=== PATIENT | male | born 1985 | race Caucasian/White ===

== ENCOUNTER 2016-11-01 19:37 | Emergency (ER) | payer MEDICARE, MEDICAID ==
[~2016-11-01] VITALS: Ht 180.3 cm; Wt 71.0 kg
[~2016-11-01 19:37] MED LIST: CEPH-376 PO
[2016-11-01 19:39] VITALS: BP 111/68
[2016-11-01] MEDS ORDERED: BACITRACIN ZINC OINT 500U/GM, 0.9 GM ONE (20:14)
== END 2016-11-01 20:32 | disposition home or self-care (01) ==
LOC: ED 20:15
DX: M79.672 Pain in left foot (principal); M79.671 Pain in right foot; Z59.0 Homelessness; X58.XXXA Exposure to other specified factors, initial encounter; Y93.89 Activity, other specified; Y99.8 Other external cause status; Y92.488 Other paved roadways as the place of occurrence of the external cause
CPT/HCPCS: 99283

== ENCOUNTER 2017-01-15 01:50 | Emergency (ER) | payer MEDICARE, MEDICAID ==
[~2017-01-15] VITALS: Ht 180.3 cm; Wt 67.9 kg
[2017-01-15 01:53] VITALS: BP 127/84
[2017-01-15] MEDS ORDERED: LIDOCAINE 1%, 20ML ONE (02:24)
[2017-01-15] MEDS ORDERED: LIDOCAINE 1%, 20ML SQ ONE (02:30)
[2017-01-15] MEDS ORDERED: BACITRACIN ZINC OINT 500U/GM, 0.9 GM ONE (03:12)
== END 2017-01-15 03:30 | disposition home or self-care (01) ==
LOC: ED 02:13
DX: S01.312A Laceration without foreign body of left ear, initial encounter (principal); X58.XXXA Exposure to other specified factors, initial encounter; Y93.89 Activity, other specified; Y92.521 Bus station as the place of occurrence of the external cause; Y99.9 Unspecified external cause status
CPT/HCPCS: 12011; 99283

== ENCOUNTER 2017-04-23 15:19 | Emergency (ER) | payer MEDICAID, MEDICARE ==
[~2017-04-23] VITALS: Ht 180.3 cm; Wt 79.0 kg
[2017-04-23 16:18] VITALS: BP 121/58
== END 2017-04-23 18:18 | disposition left against medical advice (07) ==
LOC: ED 17:00
DX: R07.89 Other chest pain (principal)
CPT/HCPCS: 71020; 93005; 99284

== ENCOUNTER 2017-08-22 10:15 | Emergency (ER) | payer MEDICARE ==
[~2017-08-22] VITALS: Ht 180.3 cm; Wt 74.9 kg
[2017-08-22 10:24] VITALS: BP 118/74
== END 2017-08-22 11:35 | disposition home or self-care (01) ==
LOC: ED 11:15
DX: S00.86XA Insect bite (nonvenomous) of other part of head, initial encounter (principal); W57.XXXA Bitten or stung by nonvenomous insect and other nonvenomous arthropods, initial encounter; Y93.84 Activity, sleeping; Y92.89 Other specified places as the place of occurrence of the external cause; Y99.8 Other external cause status; Z59.0 Homelessness; Z98.890 Other specified postprocedural states
CPT/HCPCS: 99283

== ENCOUNTER 2017-09-17 20:21 | Emergency (ER) | payer MEDICARE ==
[~2017-09-17] VITALS: Ht 180.3 cm; Wt 62.0 kg
[2017-09-17] MEDS ORDERED: maalox/diphenh/lido/sucralfate 5 ML PO PRN (20:30)
[2017-09-17] MEDS ORDERED: KETOROLAC 30 MG/1 ML IVPush ONE (20:30)
[2017-09-17 20:52] LABS: MEAN CORPUSCULAR HEMOGLOBIN 30.4 pg (27.5-34.5); MEAN CORPUSCULAR HGB CONC 33.4 g/dL (33.2-36.2); MEAN CORPUSCULAR VOLUME 91.2 fL (81-97); MEAN PLATELET VOLUME 8.4 fL (7.4-10.4); PLATELET COUNT 202 x10^3/uL (130-400); RED BLOOD COUNT 4.93 x10^6/uL (4.38-5.82); RED CELL DISTRIBUTION WIDTH 12.6 % (9.4-14.8)
[2017-09-17] MEDS ORDERED: KETOROLAC 30 MG/1 ML ONE (20:52)
[2017-09-17 21:03] LABS: ALBUMIN 3.7 g/dL (3.4-5.0); ANION GAP 9 mmol/L (5-15); CALCIUM 8.7 mg/dL (8.5-10.1); CHLORIDE 108 mmol/L (98-107); CREATININE 0.87 mg/dL (0.7-1.3)
[2017-09-17 21:24] LABS: BASOPHILS # (AUTO) 0.03 x10^3/uL (0-0.1); BASOPHILS % (AUTO) 0 % (0-1); EOSINOPHILS % (AUTO) 3 % (1-7); LYMPHOCYTES # (AUTO) 2.96 x10^3/uL (1-3.4); LYMPHOCYTES % (AUTO) 44 % (22-44); MD SCAN; MONOCYTES # (AUTO) 0.65 x10^3/uL (0.2-0.8); MONOCYTES % (AUTO) 10 % (2-9); NEUTROPHILS # (AUTO) 2.92 x10^3/uL (1.8-6.8); NEUTROPHILS % (AUTO) 43 % (42-75)
[2017-09-17] MEDS ORDERED: SODIUM CHLORIDE 0.9% 1,000ML IVBOLUS ONE (21:30)
[2017-09-17 22:25] VITALS: BP 117/67
== END 2017-09-17 22:27 | disposition home or self-care (01) ==
LOC: ED 21:30
DX: R07.89 Other chest pain (principal); I30.1 Infective pericarditis; F17.200 Nicotine dependence, unspecified, uncomplicated
CPT/HCPCS: 36415; 71046; 80048; 82040; 85025; 93005; 96361; 96374; 99285; J1885; J7030

== ENCOUNTER 2020-12-02 17:22 | Emergency (ER) | payer MEDICARE, MEDICAID ==
[~2020-12-02] VITALS: Ht 180.3 cm; Wt 70.0 kg
[2020-12-02 17:44] VITALS: BP 127/62
[2020-12-02] MEDS ORDERED: LIDOCAINE 2%, 20ML INFIL ONE (18:00)
[2020-12-02] MEDS ORDERED: LIDOCAINE-MPF 2% ,5ML ONE (18:09)
--- NOTE | 2020-12-02 18:46 | NUR ---
REPORT TO JET MARSH.
--- NOTE | 2020-12-02 19:03 | NUR ---
patient said that he wanted to leave AMA. Patient understands that risks of leaving and benefits of staying in the ER to receive medical care. Patient understands and read AMA form and still insisted on leaving ER. Keri HOFFMAN notified and let patient leave AMA as well. Patient did not want to wait for ER physician to come to bedside and speak to him about leaving AMA. Patient alert and oriented times 4 and able to ambulate safely.
== END 2020-12-02 19:08 | disposition left against medical advice (07) ==
LOC: ED 18:30
DX: S06.0X0A Concussion without loss of consciousness, initial encounter (principal); S01.112A Laceration without foreign body of left eyelid and periocular area, initial encounter; M54.2 Cervicalgia; M25.511 Pain in right shoulder; V27.0XXA Motorcycle driver injured in collision with fixed or stationary object in nontraffic accident, initial encounter; Y93.89 Activity, other specified; Y92.410 Unspecified street and highway as the place of occurrence of the external cause; Y99.8 Other external cause status
CPT/HCPCS: 99283